=== PATIENT | male | born 1960 | race Caucasian/White ===

== ENCOUNTER 2016-10-31 10:57 | Day surgery (SDC) | payer MEDICARE ==
[~2016-10-31] VITALS: Ht 190.5 cm; Wt 105.9 kg
[~2016-10-31 10:57] MED LIST: COREG DPS6.25 MG PO; DILANTIN100 MG PO; KEPPRA750 MG PO; LIPITOR DPS40 MG PO; MELATONIN3 MG PO; TIKOSYN125 MCG PO; TUMS DPS500 MG PO; TYLENOL DPS325 MG PO; VITAMIN B-121000 MCG PO; VITAMIN D1000 UNI1 PO
--- NOTE | 2016-11-03 17:03 | CVR ---
ADMIT: 10/31/2016 RM/LOC: [facility] MR#: [id number] [facility] [address] [place] [id number] SURYA HOOVER [address] [place] [address] Cardioversion Report SEX: M AGE: 56 : 1960 DATE: 10/31/2016 INDICATION: Surya is a 56-year-old male with history of persistent atrial fibrillation. He has been symptomatic with his atrial fibrillation with rapid ventricular response, so he was scheduled for elective cardioversion. DESCRIPTION OF PROCEDURE: The patient was brought to the Short Stay in a fasting state after informed consent was obtained. The patient has had therapeutic INRs. He does have a single lead pacemaker that was pacing at 70. We programmed this to a pace at 40 and then proceeded with direct current cardioversion with 120-joule biphasic synchronized shock converting from atrial fibrillation to sinus bradycardia. The patient tolerated the procedure well with no complications. SUMMARY: Successful cardioversion from atrial fibrillation to normal sinus rhythm. We will continue him on antiarrhythmic therapy and have him follow up with Dr. Price from electrophysiology to discuss further options. Guero Jones MD/ rajan JOB #: [id number] CC: Guero Jones, Attending Physician Jasen Snow, Family Physician
== END 2016-10-31 16:05 | disposition home or self-care (01) ==
LOC: SSS 10:57
DX: I48.1 Persistent atrial fibrillation (principal); I25.10 Atherosclerotic heart disease of native coronary artery without angina pectoris; I10 Essential (primary) hypertension; F17.210 Nicotine dependence, cigarettes, uncomplicated; Z79.899 Other long term (current) drug therapy